=== PATIENT | female | born 1995 | race Caucasian/White ===

== ENCOUNTER 2020-09-27 08:43 | Emergency (ER) | payer BC ==
[~2020-09-27] VITALS: Ht 162.6 cm; Wt 95.7 kg
[2020-09-27 08:52] VITALS: BP 144/82
[2020-09-27] MEDS ORDERED: LIDOCAINE MPF 1% 10 MG/ML VIAL INJ ONE (09:20)
[2020-09-27] MEDS ORDERED: ACETAMINOPHEN 325 MG TAB PO ONE (10:00)
[2020-09-27 10:07] VITALS: BP 144/82
== END 2020-09-27 10:07 | disposition home or self-care (01) ==
LOC: MED 08:43
DX: M54.6 Pain in thoracic spine (principal); M62.830 Muscle spasm of back; R03.0 Elevated blood-pressure reading, without diagnosis of hypertension
CPT/HCPCS: 20553; 99284; J2001

== ENCOUNTER 2021-04-09 14:13 | Emergency (ER) | payer BC ==
[~2021-04-09] VITALS: Ht 162.6 cm; Wt 94.8 kg
[2021-04-09 14:41] VITALS: BP 121/74
--- NOTE | 2021-04-09 14:45 | NUR ---
patient ambulated to bed 10.
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
--- NOTE | 2021-04-09 15:15 | NUR ---
HEATHER SHORT AT BEDSIDE EVALUATING PT
[2021-04-09] MEDS ORDERED: LIDOCAINE MPF 1% 10 MG/ML VIAL INJ ONE (15:20)
--- NOTE | 2021-04-09 15:35 | NUR ---
HEATHER SHORT AT BEDSIDE FOR PROCEDURE
[2021-04-09] MEDS ORDERED: IBUP-1842 PO (15:54)
[2021-04-09] MEDS ORDERED: BACI1PAC6 TP (15:54)
[2021-04-09] MEDS ORDERED: BACITRACIN OINT 500 UNITS/GM PKT TP ONE (15:55)
[2021-04-09] MEDS ORDERED: IBUPROFEN 400 MG TAB PO ONE (15:55)
[2021-04-09 16:28] VITALS: BP 121/74
--- NOTE | 2021-04-09 16:28 | NUR ---
Patient discharged with v/s stable. Written and verbal after care instructions ABOUT LACERATION CARE given and explained. Patient alert, oriented and verbalized understanding of instructions. Ambulatory with steady gait. All questions addressed prior to discharge. ID band removed. Patient advised to follow up with PMD. Rx of BACITRACIN ZINC AND IBUPROFEN given. Patient educated on indication of medication including possible reaction and side effects. Opportunity to ask questions provided and answered.
== END 2021-04-09 16:28 | disposition home or self-care (01) ==
LOC: MED 14:13
DX: S61.211A Laceration without foreign body of left index finger without damage to nail, initial encounter (principal); Z79.899 Other long term (current) drug therapy; W26.0XXA Contact with knife, initial encounter; Y93.89 Activity, other specified; Y92.89 Other specified places as the place of occurrence of the external cause; Y99.8 Other external cause status
CPT/HCPCS: 12002; 99283; J2001

== ENCOUNTER 2022-05-04 18:34 | Emergency (ER) | payer BC ==
[~2022-05-04] VITALS: Ht 162.6 cm; Wt 92.5 kg
[~2022-05-04 18:34] MED LIST: BACI1PAC6 TP; IBUP-1842 PO
[2022-05-04 18:58] VITALS: BP 141/70
--- NOTE | 2022-05-04 19:58 | NUR ---
PT AMBULATED TO BED 9
[2022-05-04 20:11] LABS: BASOPHILS % (AUTO) 0.5 % (0.0-2.0); EOSINOPHILS # (AUTO) 0.2 K/uL (0-0.4); EOSINOPHILS % (AUTO) 1.8 % (0.0-4.0); HEMATOCRIT 35.5 % (36-48); HEMOGLOBIN 11.6 g/dL (12.0-16.0); LYMPHOCYTES # (AUTO) 2.5 K/uL (2.5-16.5); LYMPHOCYTES % (AUTO) 29.5 % (20.5-51.1); MEAN CORPUSCULAR HEMOGLOBIN 27 pg (27-31); MEAN CORPUSCULAR HGB CONC 33 g/dL (33-37); MEAN CORPUSCULAR VOLUME 83.9 fL (80-94); MONOCYTES # (AUTO) 0.5 K/uL (0.8-1.0); NEUTROPHILS # (AUTO) 5.4 K/uL (1.8-7.7); NEUTROPHILS % (AUTO) 62.2 % (42.2-75.2); PLATELET COUNT (AUTO) 348 K/uL (140-450); RED BLOOD CELL COUNT(AUTO) 4.23 MIL/uL (4.20-5.40); WHITE BLOOD COUNT (AUTO) 8.6 K/uL (4.8-10.8)
--- NOTE | 2022-05-04 20:15 | NUR ---
RECEIVED IN BED 9 WITH C/O 05/25 LLQ ABD PAIN RADIATING TO LEFT THIGH, N/V X 3 DAYS. PMH: DENIES
[2022-05-04 20:37] LABS: ALBUMIN 3.4 g/dL (3.4-5.0); ANION GAP 8.1 (8-16); CARBON DIOXIDE 27.1 mmol/L (21-32); CREATININE 0.6 mg/dL (0.6-1.3); POTASSIUM 3.2 mmol/L (3.5-5.1); TOTAL BILIRUBIN 0.2 mg/dL (0.0-1.0)
--- NOTE | 2022-05-04 21:11 | NUR ---
DR. GARCIA AT BEDSIDE FOR EVALUATION
[2022-05-04] MEDS ORDERED: KETOROLAC 30 MG/ML VIAL IM ONE (21:15)
[2022-05-04] MEDS ORDERED: ONDANSETRON 4 MG ODT PO ONE (21:15)
[2022-05-04] MEDS ORDERED: HYDROcodone/APAP 5/325 MG 1 TAB TAB PO ONE (21:15)
--- NOTE | 2022-05-04 21:36 | NUR ---
US AT BEDSIDE
--- NOTE | 2022-05-04 22:30 | NUR ---
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 WET MOUNT OBTAINED AND SENT TO LAB
[2022-05-04 22:32] LABS: APPEARANCE,URINE CLEAR (CLEAR); BILIRUBIN,URINE NEGATIVE (NEGATIVE); BLOOD, URINE 3+ (NEGATIVE); COLOR,URINE YELLOW (YELLOW); LEUKOCYTE ESTERASE ,URINE TRACE (NEGATIVE); NITRITE, URINE POSITIVE (NEGATIVE); UGLUCOSE NEGATIVE (NEGATIVE)
[2022-05-04 22:38] LABS: RBC,URINE 0-5 /HPF (0-5); WBC,URINE TOO MANY TO COUNT /HPF (0-5)
[2022-05-05] MEDS ORDERED: NAPR-54 PO (00:06)
[2022-05-05] MEDS ORDERED: METR-435 PO (00:06)
[2022-05-05] MEDS ORDERED: CEPH-588 PO (00:06)
[2022-05-05 00:15] VITALS: BP 138/72
--- NOTE | 2022-05-05 00:15 | NUR ---
Patient discharged with v/s stable. Written and verbal after care instructions given and explained. Patient alert, oriented and verbalized understanding of instructions. Ambulatory with steady gait. All questions addressed prior to discharge. ID band removed. Patient advised to follow up with PMD. Rx of Keflex & Naprosyn given. Patient educated on indication of medication including possible reaction and side effects. Opportunity to ask questions provided and answered.
--- NOTE | 2022-05-08 19:05 | NUR ---
LATE ENTRY. POSITIVE URINE CULTURE RESULT. FORM SIGNED BY DR OCONNOR. PT REPORTS ABDOMINAL PAIN. DR OCONNOR PRESCRIBING BACTRIM DS. PT ADVISED TO TAKE FULL RX AND IF S/S CONTINUE, TO RETURN. FORM PLACED IN BINDER Addendum: 05/08/22 at 1907 by [email or web address] RX CALLED INTO [facility] BY DR OCONNOR
== END 2022-05-05 00:15 | disposition home or self-care (01) ==
LOC: MED 18:34
DX: N76.0 Acute vaginitis (principal); R10.2 Pelvic and perineal pain; N39.0 Urinary tract infection, site not specified; Z98.51 Tubal ligation status
CPT/HCPCS: 36415; 76856; 80053; 81001; 81025; 83690; 85025; 87086; 87210; 87491; 93976; 96372; 99284; J1885; Q0162